=== PATIENT | female | born 1990 | race Caucasian/White ===

== ENCOUNTER 2021-02-27 00:18 | Emergency (ER) | payer SELFPAY ==
[2021-02-27] MEDS ORDERED: Morphine 4 MG/ML VIAL ONE (01:07)
[2021-02-27] MEDS ORDERED: HYDROcodone/Acetaminophen 10/325 mg Tablet ONE (01:22)
== END 2021-02-27 01:24 | disposition home or self-care (01) ==
LOC: NAV ERS 00:18
DX: M54.5 Low back pain (principal); M53.3 Sacrococcygeal disorders, not elsewhere classified; X50.1XXA Overexertion from prolonged static or awkward postures, initial encounter
CPT/HCPCS: 99283; J2270